=== PATIENT | male | born 1955 | race Two or more races ===

== ENCOUNTER 2019-09-05 14:06 | Emergency (ER) | payer MEDICARE ==
[~2019-09-05] VITALS: Ht 165.1 cm; Wt 75.9 kg
[2019-09-05 14:21] VITALS: Ht 165.1 cm; Wt 75.9 kg
[2019-09-05] MEDS ORDERED: PHOSLO667 MG PO (14:23)
[2019-09-05 16:15] VITALS: BP 122/68
== END 2019-09-05 16:15 | disposition home or self-care (01) ==
LOC: D.ER 14:06
DX: S00.81XA Abrasion of other part of head, initial encounter (principal); V89.2XXA Person injured in unspecified motor-vehicle accident, traffic, initial encounter; W22.12XA Striking against or struck by front passenger side automobile airbag, initial encounter; Y93.9 Activity, unspecified; Y92.9 Unspecified place or not applicable

== ENCOUNTER → 2019-12-18 09:57 | Outpatient (CLI) | payer MEDICARE ==
[2019-09-05 14:21] VITALS: BMI 27.8
[~2019-12-18 09:57] MED LIST: PHOSLO667 MG PO
== END | disposition home or self-care (01) ==
LOC: D.US 09:57
PROVIDERS: ATTEND Internal Medicine Nephrology
DX: R10.84 Generalized abdominal pain (principal); K82.9 Disease of gallbladder, unspecified

== ENCOUNTER → 2019-12-31 10:33 | Outpatient (CLI) | payer MEDICARE ==
[2019-09-05 14:21] VITALS: BMI 27.8
== END | disposition home or self-care (01) ==
LOC: D.NM 09:30
PROVIDERS: ATTEND Internal Medicine Nephrology
DX: K82.4 Cholesterolosis of gallbladder (principal)

== ENCOUNTER 2021-03-18 18:33 | Emergency (ER) | payer MEDICARE, MEDICAID ==
[~2021-03-18] VITALS: Ht 165.1 cm; Wt 79.1 kg
[2021-03-18] MEDS ORDERED: ASPIRIN EC81 MG PO (18:51)
[2021-03-18] MEDS ORDERED: heparin (19:28)
[2021-03-18] MEDS ORDERED: FER-IN-SOL DROP50 ML (19:29)
[2021-03-18] MEDS ORDERED: iron (19:29)
[2021-03-18 19:40] LABS: APTT 34.6 SECONDS (22.8-39.4); INR 1.25 (0.85-1.17); PROTIME 14.5 SECONDS (11.6-15.0)
[2021-03-18 19:50] LABS: CALC OSMOLALITY 296 mosm/kg (275-300); CALCIUM 8.7 mg/dL (8.5-10.1); CARBON DIOXIDE 21.6 mmol/L (21.0-32.0); CHLORIDE - SERUM 95 mmol/L (98-107); GLUCOSE 296 mg/dL (74-106); POTASSIUM - SERUM 4.9 mmol/L (3.5-5.1); SODIUM 131 mmol/L (136-145); UREA NITROGEN 78 mg/dL (7-18); eGFR NON AFRICAN AMERICAN 6 mL/min (90-120)
[2021-03-18 20:05] LABS: ALBUMIN 3.3 g/dL (3.4-5.0); ALKALINE PHOSPHATASE 96 U/L (30-120); ALT (SGPT) 19 U/L (10-68); BILIRUBIN - TOTAL 0.43 mg/dL (0.2-1.3); CKMB 0.2 U/L (0.0-3.6); CREATINE KINASE 56 UL (21-232); PROTEIN - SERUM 8.2 g/dL (6.4-8.2); TROPONIN-I < 0.017 ng/mL (0.000-0.060)
[2021-03-18 21:03] LABS: MONOCYTES 15.3 % (2-11); RBC 3.04 10x6/uL (4.20-6.10)
[2021-03-18 21:04] LABS: EOSINOPHILS 0.9 % (0-7); HEMOGLOBIN 9.3 g/dL (13.5-17.5); LYMPHOCYTES 13.4 % (15-50); MCH 30.8 pg (26.0-34.0); MCHC 33.3 g/dL (31.0-37.0); MCV 92.4 fL (80.0-100.0); MEAN PLATELET VOLUME 9.2 fL (7.4-10.4); NEUTROPHILS 69.4 % (40-80); RDW 16.6 % (11.5-14.5); WBC 6.6 10x3/uL (4.8-10.8)
[2021-03-18 21:06] LABS: PLATELET COUNT 4 10x3/uL (130-400)
[2021-03-18 21:25] LABS: PLATELET ESTIMATE DECREASED
[2021-03-18 22:09] VITALS: Ht 165.1 cm; Wt 79.1 kg
[2021-03-18 23:51] LABS: SARS-CoV-2 ANTIGEN NEGATIVE- SARS-COV-2 (NEGATIVE)
[2021-03-19 02:39] VITALS: BP 114/59
== END 2021-03-19 04:08 ==
LOC: D.ER 18:33
PROVIDERS: Family Medicine
DX: N18.6 End stage renal disease (principal); Z99.2 Dependence on renal dialysis; R21 Rash and other nonspecific skin eruption; D64.9 Anemia, unspecified; D69.6 Thrombocytopenia, unspecified